=== PATIENT | female | born 1980 | race Caucasian/White ===

== ENCOUNTER 2023-03-10 10:49 | Emergency (ER) | payer MEDICARE, OTHER | END 2023-03-10 13:00 | disposition home or self-care (01) | LOC: CSHERS 10:49 | DX: F41.9 Anxiety disorder, unspecified (principal); T43.225A Adverse effect of selective serotonin reuptake inhibitors, initial encounter; R53.1 Weakness; K21.9 Gastro-esophageal reflux disease without esophagitis; J45.909 Unspecified asthma, uncomplicated | CPT/HCPCS: 93005 ==